=== PATIENT | female | born 1985 | race Caucasian/White ===

== ENCOUNTER → 2016-12-07 | Outpatient (CLI) | payer OTHER ==
--- NOTE | 2016-12-07 11:41 | XR ---
Cervical spine limited HISTORY: Chronic neck pain 4 views of the cervical spine Correlation to prior spine 09/08/2015 There is no significant interval change. Loss of cervical lordosis could be due to muscle spasm. Cerv ical vertebral bodies show preserved height, alignment, and bone mineralization. Disc spaces and prev ertebral soft tissues are normal. IMPRESSION: Stable exam, no acute bone abnormality evident. Loss of cervical lordosis.
== END | disposition home or self-care (01) ==
LOC: RADXRMAIN 10:30
PROVIDERS: ATTEND Internal Medicine
DX: M40.50 Lordosis, unspecified, site unspecified (principal)
CPT/HCPCS: 72040

== ENCOUNTER 2019-06-11 12:39 | Emergency (ER) | payer OTHER ==
[2019-06-11 13:01] VITALS: BP 133/80; PULSE 96; RESP 18; TEMP 98.7
--- NOTE | 2019-06-11 13:57 | XR ---
EXAMINATION TYPE: XR chest 2V DATE OF EXAM: 06/11/2019 COMPARISON: 04/28/2015 TECHNIQUE: PA and lateral views submitted. HISTORY: Cough FINDINGS: The lungs are clear and there is no pneumothorax, pleural effusion, or focal pneumonia. No overt fa ilure. Heart size normal. Surgical change in the abdomen. Mild prominence the pulmonary arteries IMPRESSION: 1. No acute process.
--- NOTE | 2019-06-11 14:04 | ED ---
General Adult HPI - General Chief complaint: Upper Respiratory Infection Stated complaint: Headache and chest pain, cough Time Seen by Provider: 06/11/19 13:30 Source: patient Mode of arrival: ambulatory Limitations: no limitations - History of Present Illness Initial comments: Patient is a 33-year-old female presenting to the emergency department with a chief complaint of cough congestion and a fever. States her symptoms began about 2 days ago with a runny nose and a sore throat. States she is since developed a productive cough with clear sputum production. States she had a fever at home which she was able to control with Tylenol Motrin. Denies any chest pain shortness of breath back and abdominal pain. Does report occasional nausea but no vomiting or diarrhea. States she has been exposed to patients with the flu. - Related Data Home Medications Medication Instructions Recorded Confirmed Acetaminophen [Tylenol] 1,000 mg PO Q4-6H PRN 09/26/15 09/26/15 Ibuprofen [Motrin] 800 mg PO ONCE 09/26/15 09/26/15 Previous Rx's Medication Instructions Recorded Acetaminophen-Codeine 300-30mg 1 each PO Q6H PRN #20 tablet 09/26/15 [Tylenol #3] Ibuprofen [Motrin] 800 mg PO Q6HR PRN #30 tab 09/26/15 Penicillin V Potassium [Pen Vee K] 500 mg PO QID 10 Days day 09/26/15 Oseltamivir [Tamiflu] 75 mg PO Q12HR #10 cap 06/11/19 methylPREDNISolone [Medrol Dose 4 mg PO DIRECTED #1 pack 06/11/19 Pack] Allergies Allergy/AdvReac Type Severity Reaction Status Date / Time No Known Allergies Allergy Verified 09/26/15 12:01 Review of Systems ROS Statement: Those systems with pertinent positive or pertinent negative responses have been documented in the HPI. ROS Other: All systems not noted in ROS Statement are negative. Past Medical History Past Medical History: Seizure Disorder Additional Past Medical History / Comment(s): bipolar, borderline personality,depression Pt. states she had a seizure 1 yr ago and 1 week ago. Pt. states she had an appt. with a neurologist a month ago but did not go. History of Any Multi-Drug Resistant Organisms: None Reported Past Surgical History: Cholecystectomy, Orthopedic Surgery, Tubal Ligation Additional Past Surgical History / Comment(s): ankle surg Past Anesthesia/Blood Transfusion Reactions: No Reported Reaction Past Psychological History: Anxiety, Bipolar, Depression Smoking Status: Current every day smoker Past Alcohol Use History: None Reported Past Drug Use History: None Reported - Past Family History Sister(s) Family Medical History: No Reported History General Exam Limitations: no limitations General appearance: alert, in no apparent distress Head exam: Present: atraumatic, normocephalic, normal inspection Eye exam: Present: normal appearance Pupils: Present: normal accommodation ENT exam: Present: normal exam, normal oropharynx (Uvula midline. No tonsillar erythema exudates or enlargement.), mucous membranes moist, TM's normal bilaterally, normal external ear exam Neck exam: Present: normal inspection, full ROM. Absent: lymphadenopathy Respiratory exam: Present: normal lung sounds bilaterally. Absent: wheezes, rales Cardiovascular Exam: Present: regular rate, normal rhythm, normal heart sounds Extremities exam: Present: normal inspection, full ROM Back exam: Present: normal inspection, full ROM Neurological exam: Present: alert, oriented X3 Psychiatric exam: Present: normal affect, normal mood Skin exam: Present: warm, dry, intact, normal color Course Vital Signs 06/11/19 12:57 Temperature 98.7 F Pulse Rate 96 Respiratory 18 Rate Blood Pressure 133/80 O2 Sat by Pulse 98 Oximetry Medical Decision Making - Medical Decision Making Patient is a 33-year-old female presenting to the emergency department with a chief complaint of cough congestion and fever. X-ray is unremarkable. Patient is influenza positive. Patient started on Tamiflu. He also will be discharged with a Medrol Dosepak. Vitals are stable. Patient vised to follow with primary care. I counseled the patient for smoking cessation for greater than 3 minutes Return parameters were thoroughly discussed with patient is understanding and agreeable. Case discussed with physician. - Lab Data Lab Results 06/11/19 Range/Units 13:00 Influenza Type A RNA Detected H (Not Detectd) Influenza Type B (PCR) Not Detected (Not Detectd) Disposition Clinical Impression: Influenza, Cough Disposition: HOME SELF-CARE Condition: Stable Instructions (If sedation given, give patient instructions): Influenza (DC) Additional Instructions: Take prescribed medication as directed. Alternate between Tylenol Motrin. Return to emergency department if symptoms worsen. Prescriptions: methylPREDNISolone [Medrol Dose Pack] 4 mg PO DIRECTED #1 pack Oseltamivir [Tamiflu] 75 mg PO Q12HR #10 cap Is patient prescribed a controlled substance at d/c from ED?: No Referrals: Osmani Mei MD [Primary Care Provider] - 1-2 days Time of Disposition: 14:04
== END 2019-06-11 14:25 | disposition home or self-care (01) ==
LOC: EC 12:39
DX: J10.1 Influenza due to other identified influenza virus with other respiratory manifestations (principal); F17.200 Nicotine dependence, unspecified, uncomplicated; Z71.6 Tobacco abuse counseling; Z79.1 Long term (current) use of non-steroidal anti-inflammatories (NSAID)
CPT/HCPCS: 71046; 87502; 99283; 99406